=== PATIENT | female | born 1970 | race Caucasian/White ===

== ENCOUNTER 2017-10-20 23:09 | Emergency (ER) | payer OTHER ==
[~2017-10-20] VITALS: Ht 162.6 cm; Wt 84.9 kg
[2017-10-20 23:15] VITALS: Ht 162.6 cm; Wt 84.9 kg
[2017-10-21 06:15] VITALS: BP 157/116
== END 2017-10-21 06:15 | disposition home or self-care (01) ==
LOC: ED 23:09
DX: S29.011A Strain of muscle and tendon of front wall of thorax, initial encounter (principal); Z88.2 Allergy status to sulfonamides; I10 Essential (primary) hypertension; V43.62XA Car passenger injured in collision with other type car in traffic accident, initial encounter; Y93.89 Activity, other specified; Y92.488 Other paved roadways as the place of occurrence of the external cause; Y99.8 Other external cause status